=== PATIENT | male | born 2000 | race Caucasian/White ===

== ENCOUNTER 2023-02-01 01:02 | Emergency (ER) | payer BC, OTHER, SELFPAY ==
[2023-02-01] VITALS (16 sets, daily range): BP systolic 104–141; BP diastolic 47–81; PULSE 97–128; RESP 16–33; TEMP 37.2; O2SAT 96–100; BMI 29.5
--- NOTE | 2023-02-01 01:09 | CTR_ITS ---
PROCEDURE INFORMATION: Exam: CT Maxillofacial Without Contrast Exam date and time: 02/01/2023 1:21 AM Age: 22 years old Clinical indication: Injury or trauma; Fall; Blunt trauma (contusions or hematomas); Other: Unk; Injury details: Seizure, patient is special needs and fell into a bathtub and was found head first in the tub; Additional info: Seizure fall left orbital region trauma TECHNIQUE: Imaging protocol: Computed tomography of the face without contrast. Radiation optimization: All CT scans at this facility use at least one of these dose optimization techniques: automated exposure control; mA and/or kV adjustment per patient size (includes targeted exams where dose is matched to clinical indication); or iterative reconstruction. REPORTING DATA: Count of CT and Cardiac NM exams in prior 12 months: This patient has received 0 known CTs and 0 known cardiac nuclear medicine studies in the 12 months prior to the current study. COMPARISON: CT head wo con* [id number] 02/01/2023 1:18 AM RADIATION DOSE METRICS: Total DLP (mGy-cm): 704.38 FINDINGS: Orbital cavities: Orbits are normal. Globes are unremarkable. Bones/joints: No acute fracture. Paranasal sinuses: Normal. No air-fluid levels. Soft tissues: Unremarkable. CT/CT facial bones wo con* [id number] IMPRESSION: No acute findings.
--- NOTE | 2023-02-01 01:09 | CTR_ITS ---
PROCEDURE INFORMATION: Exam: CT Head Without Contrast Exam date and time: 02/01/2023 1:18 AM Age: 22 years old Clinical indication: Other: Seizure; Patient HX: Seizure, patient is special needs and fell into a bathtub and was found head first in the tub; Additional info: Seizure left face trauma TECHNIQUE: Imaging protocol: Computed tomography of the head without contrast. Radiation optimization: All CT scans at this facility use at least one of these dose optimization techniques: automated exposure control; mA and/or kV adjustment per patient size (includes targeted exams where dose is matched to clinical indication); or iterative reconstruction. REPORTING DATA: Count of CT and Cardiac NM exams in prior 12 months: This patient has received 0 known CTs and 0 known cardiac nuclear medicine studies in the 12 months prior to the current study. COMPARISON: No relevant prior studies available. RADIATION DOSE METRICS: Total DLP (mGy-cm): 1200.71 FINDINGS: Brain: Normal. No hemorrhage. Unremarkable white matter. No mass effect. Cerebral ventricles: No ventriculomegaly. Paranasal sinuses: Visualized sinuses are unremarkable. No fluid levels. Mastoid air cells: Visualized mastoid air cells are well aerated. Bones/joints: Unremarkable. No acute fracture. Soft tissues: Unremarkable. CT/CT head wo con* [id number] IMPRESSION: No acute intracranial abnormality.
--- NOTE | 2023-02-01 01:15 | W.ED.SEIZURE ---
HPI - Seizure General: Chief Complaint: Seizure Stated Complaint: SEIZURE Time Seen by Provider: 02/01/23 01:03 History of Present Illness: HPI Narrative: Patient was brought in by EMS with complaints of seizure. Patient fell in the shower when he had a seizure hit his left jew region left elbow and left chest on the shower floor. Patient does have a history of having seizures and is on medicine. Patient is awake and alert and oriented male but was postictal immediately after the seizure. He did also defecate on himself. Patient's family is in the room with patient. Review of Systems General: Reports: 10 or more systems reviewed and unremarkable except in HPI and below Physical Exam Const: COMMON NORMALS: no acute distress, average body habitus, patient oriented x3, no limitations, healthy appearing, alert and well nourished HENMT: COMMON NORMALS: normocephalic, hearing grossly normal bilaterally, external ears normal, Normal external nose present and moist oral mucous membranes; head/scalp not atraumatic (Bruising and swelling noted to left lateral orbital region along with very ) HEAD & SCALP: normocephalic; not atraumatic (Bruising and swelling noted to left lateral orbital region along with very ) NOSE: Normal external nose present EXTERNAL EAR: Yes external ears normal Eye: COMMON NORMALS: Equal, round and reactive pupils present, EOMs intact bilaterally, conjunctivae normal and no scleral icterus CONJUNCTIVA: Yes conjunctivae normal PUPIL: Yes Equal, round and reactive pupils present Neck/C-Spine: COMMON NORMALS: full ROM, no lymphadenopathy, supple, no meningeal signs, no JVD and Thyroid normal THYROID: Thyroid normal Chest: COMMONS NORMALS: normal palpation of entire chest wall; negative for normal inspection of the chest (Bruising noted to left chest wall breast region. Patient is nontender to p) Resp: COMMON NORMALS: normal respiratory effort, No retractions, No use of accessory muscles and clear to auscultation bilaterally AUSCULTATION: clear to auscultation bilaterally Cardio: COMMON NORMALS: no JVD, regular rate, regular rhythm, S1 normal heart sound present, S2 normal heart sound present, No gallops present (Cardio), No clicks present (Cardio), No murmurs present (Cardio) and No rub (Cardio) RATE: regular rate RHYTHM: regular rhythm HEART SOUNDS: S1 normal heart sound present and S2 normal heart sound present GI: COMMON NORMALS: Normal to inspection, nondistended, normoactive bowel sounds present, Soft to palpation, non-tender, No hepatosplenomegaly present and no masses PALPATION: Yes Soft to palpation and Yes No hepatosplenomegaly present Extremity: NARRATIVE EXTREMITY EXAM: Bruising noted to the left elbow area but patient has full range of motion with no pain with motion or palpation. Neuro: COMMON NORMALS: patient oriented x3 SENSORIUM/ORIENTATION: Yes alert MENINGEAL SIGNS: Yes no meningeal signs Course Vital Signs: Vital signs: Vital Signs Temperature 98.9 F 02/01/23 01:03 Pulse Rate 109 H 02/01/23 04:50 Respiratory Rate 20 H 02/01/23 04:50 Blood Pressure 120/59 02/01/23 04:50 Pulse Oximetry 97 02/01/23 04:50 Oxygen Delivery Me thod Room Air 02/01/23 01:30 MDM - Seizure MDM Narrative Medical decision making narrative: Patient presented to the ER after falling in the shower while having a seizure. Patient had a CT scan of his head and facial bones which was negative. While waiting for these results patient had another seizure that was witnessed. Patient was given 2 mg Ativan IV. Patient's back to his normal baseline. Right before discharge patient's parents decided that they felt he needed a CT scan of his neck since the way he fell. CT scan of the neck is pending and anticipate will be negative and we will continue with the discharge. Differential Diagnosis Seizure Differential Diagnosis: Likely generalized seizure and epileptic seizure; Unlikely intractable seizure disorder, febrile convulsion, focal seizure, new onset seizure or status epilepticus Medical Records Attestation: I reviewed the patient's medical records. Lab Data Attestation: I reviewed the patient's lab results. Labs: Radiology Impressions Face CT 02/01/23 01:09 IMPRESSION: No acute findings. Head CT 02/01/23 01:09 IMPRESSION: No acute intracranial abnormality. Cervical Spine CT 02/01/23 03:44 IMPRESSION: No acute findings. All radiology interpretation(s) finalized by discharge Discharge Plan Discharge Patient Disposition: Home Clinical Impression: Epileptic seizure Qualifiers: Epilepsy type: unspecified Intractability: not intractable Status epilepticus: without status epilepticus Qualified Code(s): G40.909 - Epilepsy, unspecified, not intractable, without status epilepticus Fall Qualifiers: Encounter type: initial encounter Qualified Code(s): W19.XXXA - Unspecified fall, initial encounter Contusion of head Qualifiers: Encounter type: initial encounter Contusion of head detail: periocular area Laterality: left Qualified Code(s): S00.12XA - Contusion of left eyelid and periocular area, initial encounter Condition: Stable Discharge Orders: Discharge ED (Routine); Ordered 02/01/23 Ordered By: Dex Jean Referrals: Martha Chen, OT [Primary Care Provider] - NOT ON FILE,DOCTOR [Family Provider] - Patient Instructions: Contusion, Seizures Activity Restrictions/Additional Instructions: Please continue take all your antiseizure medicine as prescribed. Please follow-up with your family practice doctor and/or neurologist within the next week for further evaluation and treatment. Coding Level of Care Code ED Animal Laboratory Technician for Dioni Whitlock
[2023-02-01] MEDS: LORazepam 2 mg/mL INJ 1 mL IM (02:46)
--- NOTE | 2023-02-01 02:55 | PC.NURSE ---
Pt began having a seizure, pt parents came out of room to alert staff. Nursing staff and MD to bedside, pt airway and oxygen saturation maintained. Seizure lasted for approximately 30 seconds.
--- NOTE | 2023-02-01 03:44 | CTR_ITS ---
PROCEDURE INFORMATION: Exam: CT Cervical Spine Without Contrast Exam date and time: 02/01/2023 3:55 AM Age: 22 years old Clinical indication: Injury or trauma; Fall; Blunt trauma; Patient HX: Seizure, patient is special needs and was found head first in bath tub, patient complains of feeling crooked and complains of pain on left side of neck at level of c6 TECHNIQUE: Imaging protocol: Computed tomography of the cervical spine without contrast. Radiation optimization: All CT scans at this facility use at least one of these dose optimization techniques: automated exposure control; mA and/or kV adjustment per patient size (includes targeted exams where dose is matched to clinical indication); or iterative reconstruction. REPORTING DATA: Count of CT and Cardiac NM exams in prior 12 months: This patient has received 0 known CTs and 0 known cardiac nuclear medicine studies in the 12 months prior to the current study. COMPARISON: CT facial bones wo con* [id number] 02/01/2023 1:21 AM RADIATION DOSE METRICS: Total DLP (mGy-cm): 286.17 FINDINGS: Bones/joints: Mild reversal of the normal cervical lordosis. No acute fracture or subluxation. No significant disc herniation or stenosis. No suspicious osseous lesion. Lungs: Visualized lung apices are clear. Lymph nodes: Multiple shotty cervical lymph nodes seen bilaterally. Soft tissues: Unremarkable. CT/CT cervical spin wo con* [id number] IMPRESSION: No acute findings.
--- NOTE | 2023-02-01 04:06 | PC.NURSE ---
[facility] rejected by Eric @[phone], facility will not take in power chair. [facility] rejected by Antonella @[phone], facility will not take in power chair. [facility] rejected by Elizabeth @[phone], facility has too many stairs for power chair. [facility] rejected by BJ @[phone], facility has no beds available. [facility] rejected by Eric @[phone], facility cannot take power chair. [facility] rejected by Armando @ [phone], facility has no be available. [facility] faxed @[phone]. [facility] rejected by Fransisca @[phone], facility has no beds available. [facility] will possibly accept pt @1000AM. [facility] rejected, facility has no beds available. [facility] was faxed pt info @[phone]. [facility] rejected by [facility], facility could not meet pt needs.
--- NOTE | 2023-02-01 04:43 | PC.NURSE ---
RNx2 offered to clean pt, family refused stating they could do it.
--- NOTE | 2023-02-01 04:50 | PC.NURSE ---
WHILE ROOMING PT UPON ARRIVAL, PT PARENTS ARRIVED AT THE REGISTRATION DESK AT THE SAME TIME PT ARRIVED IN AMBULANCE BAY. PT WAS NOT IN ROOM YET AND PT FAMILY WERE OUT FRONT YELLING AT REG STAFF TO LET THEM BACK. REG STAFF CALLED CHARGE NURSE AND CHARGE STATED THAT THE PT WAS NOT EVEN IN A ROOM YET AND THAT SOON PT WAS ROOMED THEY WOULD BE ALLOWED BACK TO THE ROOM. EMS WAS OFFLOADING PT ONTO STRETCHER AND REG LET FAMILY BACK. FAMILY CHARGED INTO ROOM AND IMMEDIATELY BEGAN COMPLAINING ABOUT NOT BEING ALLOWED BACK IMMEDIATELY. NURSE ATTEMPTED TO EXPLAIN THAT WE WERE NOT DELAYING THEIR ADMITTANCE INTO THE ROOM BUT THAT THE PT WAS NOT EVEN IN A ROOM AT THE TIME OF THEIR ARRIVAL. PT MOTHER LOOKED AT NURSE AND STATED JUST STOP. DON'T ARGUE WITH ME. NURSE SAID OK AND CONTINUED WITH THE TRIAGE ASSESSMENT. LATER IN THE STAY, THE PT HAD ANOTHER SEIZURE. FAMILY EXITED ROOM YELLING FOR A DOCTOR TO GET IN THERE NOW. NURSES IMMEDIATELY ENTERED ROOM AND ATTEMPTED TO ADMINISTER CARE BUT FAMILY WOULD NOT MOVE FROM THE BEDSIDE. PT WAS MAINTAINING AIRWAY AND O2 SATURATIONS. MOTHER STATED I NEED OXYGEN NOW! PRIMARY NURSE CHUCK WAS ATTEMPTING TO ADMINISTER PROPHYLACTIC OXYGEN BUT MOTHER TOOK TUBING FROM HER HANDS AND PLACED IT ON PATIENT ON HER OWN. MOTHER THEN STATED I NEED HIM ON THE MONITOR RIGHT NOW!! PT WAS BEING MONITORED VIA B/P AND PULSE OX, NURSE CALMLY STATED TO MOTHER MA'AM HE IS HOOKED INTO THE MONITOR, HIS O2 SATS ARE WNL. WHILE FINISHING THIS STATEMENT MOTHER STATED HE IS NOT ON THE MONITOR I'M NOT BLIND. MOTHER DEMANDED HE BE HOOKED INTO THE RAG CUTTING MACHINE FEEDER IMMEDIATELY AND THEN SHE WOULD NOT MOVE AWAY FROM THE BEDSIDE. HE WAS THEN CONNECTED TO THE RAG CUTTING MACHINE FEEDER PER HER REQUEST. PT REMAINED STABLE THROUGHOUT THE SEIZURE, PHYSICIAN WAS AT BEDSIDE AND VERBAL ORDER WAS GIVEN FOR ATIVAN AND IT WAS ADMINISTERED. UPON DISCHARGING PT, FAMILY WAS UNHAPPY BECAUSE THEY SAID HE HAS BEEN LAYING IN HIS SHIT FOR THREE HOURS NURSES WERE NOT MADE AWARE THAT PATIENT HAD HAD AN ACCIDENT UNTIL THIS MOMENT. NURSES OFFERED TO CLEAN HIM UP PRIOR TO D/C AND FAMILY STATED NO WE WILL JUST DO IT OURSELVES. AFTER PT WAS CLEANED UP FAMILY LEFT ROOM WITH PT WITHOUT TELLING STAFF. THEY MADE IT TO THE ENTRANCE DOORS AND THE FATHER YELLED THEY'RE SITTING THERE THEY CAN GET UP AND LET ME OUT!! NURSE DANIEL BENAVIDEZ WENT TO LET OUT THE FAMILY AND FATHER SAID YEAH LIKE YOU DIDN'T KNOW I WAS GOING TO NEED OUT. JUST DON'T EVEN. I WANT TO GET OUT OF THIS SHITHOLE.
== END 2023-02-01 04:50 | disposition home or self-care (01) ==
PROVIDERS: Emergency Provider Emergency Medicine; PCP Occupational Therapist
DX: G40.909 Epilepsy, unspecified, not intractable, without status epilepticus (principal); S00.12XA Contusion of left eyelid and periocular area, initial encounter; W18.2XXA Fall in (into) shower or empty bathtub, initial encounter; S50.02XA Contusion of left elbow, initial encounter
CPT/HCPCS: 70450; 70486; 72125; 99284; J2060